=== PATIENT | male | born 1940 | race Hispanic/Latino ===

== ENCOUNTER → 2020-10-12 | Outpatient (CLI) | payer MEDICARE, OTHER ==
[~2020-10-12] MED LIST: ASPIRIN EC81 MG PO; CYANOCOBAL1000 MCG/M IM; DOCUSATE SODIU100 M1 PO; DONEPEZIL HCL5 MG PO; DULCOLAX SUPP10 MG RC; FERROUS SULFAT325 MG PO; LASIX20 MG PO; METOPROLOL TART50 MG PO; MIRTAZAPINE15 MG PO; SIMVASTATIN80 MG PO
== END ==
LOC: SLEEP 19:34
PROVIDERS: ATTEND Internal Medicine
DX: G47.33 Obstructive sleep apnea (adult) (pediatric) (principal)
CPT/HCPCS: 95811

== ENCOUNTER 2021-09-10 13:08 | Inpatient (IN) | payer MEDICARE, OTHER ==
[~2021-09-10] VITALS: Ht 172.7 cm; Wt 75.7 kg
[2021-09-10 13:24] LABS: BASOPHILS % 0.2 % (0.0-1.0); EOSINOPHILS % 0.5 % (0.0-6.0); HEMATOCRIT 25.2 % (38.2-49.6); HEMOGLOBIN 7.6 g/dL (14.0-18.0); LYMPHOCYTES # (AUTO) 0.9 (1.0-3.2); LYMPHOCYTES % 14.4 % (18.0-39.1); MEAN CORPUSCULAR HGB CONC 30.2 g/dL (31-35); MEAN CORPUSCULAR VOLUME 102.9 fL (81-99); MONOCYTES # (AUTO) 0.3 (0.2-0.8); MONOCYTES % 4.2 % (4.4-11.3); NEUTROPHILS % 79.4 % (38.7-80.0); PLATELET COUNT 101 x10e3/uL (140-360); RED BLOOD COUNT 2.45 x10e6/uL (4.3-5.7); RED CELL DISTRIBUTION WIDTH 15.6 % (11.7-14.4)
[2021-09-10 13:30] LABS: INR 1.12; PROTHROMBIN TIME 15.2 seconds (11.9-14.5)
[2021-09-10] MEDS ORDERED: CALCIUM GLUCONATE 10% INJ 4.65 MEQ in SODIUM CHLORIDE 0.9% 50ML 50 ML IV ONE (13:30)
[2021-09-10 13:32] LABS: PARTIAL THROMBOPLASTIN TIME 44.5 seconds (23.8-35.5)
[2021-09-10 13:42] LABS: ALBUMIN 2.5 g/dL (3.5-5.0); ALBUMIN/GLOBULIN RATIO 0.7 (0.8-2.0); ANION GAP 15.7 mmol/L (8-16); CALCIUM 8.1 mg/dL (8.4-10.2); CREATININE, SERUM 6.38 mg/dL (0.72-1.25)
[2021-09-10 13:46] LABS: POTASSIUM 6.7 mmol/L (3.5-5.1)
[2021-09-10 13:47] LABS: CREATINE KINASE MB 6.9 ng/mL (0-5.0)
[2021-09-10] MEDS ORDERED: DEXTROSE 50% SYRINGE 50 ML IV STA ×2 (13:47→20:40)
[2021-09-10] MEDS ORDERED: SODIUM BICARBONATE 8.4% INJ 50 ML SYR IV STA (13:47)
[2021-09-10] MEDS ORDERED: ALBUTEROL SULF 0.083% NEB SOLN 3 ML NEB NEB STA (13:47)
[2021-09-10] MEDS ORDERED: ATROPINE SULFATE 1 MG/ML VIAL ONE (13:53)
[2021-09-10] MEDS ORDERED: SOD POLYSTYRENE SULFONATE SUSP 15 GM/60 ML BTL PO NR (14:00)
[2021-09-10] MEDS ORDERED: INSULIN REGULAR, HUMAN 100 UNIT/1 ML IV ONE (14:00)
[2021-09-10] MEDS ORDERED: SODIUM BICARBONATE 8.4% SYRING 50 ML ONE (14:11)
[2021-09-10] MEDS ORDERED: CETIRIZINE HCL10 MG PO (15:19)
[2021-09-10] MEDS ORDERED: KERENDIA20 MG PO (15:19)
[2021-09-10] MEDS ORDERED: FOLIC ACID 1MG PEG (15:19)
[2021-09-10] MEDS ORDERED: ACIDOPHILUS1 EAC1 PO (15:19)
[2021-09-10] MEDS ORDERED: ISOSORBIDE DINI20 MG PO (15:19)
[2021-09-10] MEDS ORDERED: AMLODIPINE BESY10 MG PO (15:19)
[2021-09-10] MEDS ORDERED: FLOMAX0.4 MG PO (15:19)
[2021-09-10] MEDS ORDERED: LOVAZA1 GM PO (15:19)
[2021-09-10] MEDS ORDERED: LIPITOR20 MG PO (15:19)
[2021-09-10] MEDS ORDERED: SODIUM CHLORIDE 0.9% 1000ML 1,000 ML ONE (15:43)
[2021-09-10] MEDS ORDERED: ONDANSETRON HCL INJ 2MG/ML 2ML 2 MG/ML VIAL IV PRN (15:45)
[2021-09-10] MEDS ORDERED: Vancomycin IV 1 GM in SODIUM CHLORIDE 0.9% 250ML 250 ML IV STA (15:50)
[2021-09-10 16:19] LABS: % IRON SATURATION 62 % (15-50); IRON 136 ug/dL (65-175); TOTAL IRON BINDING CAPACITY 218 ug/dL (261-478); TRANSFERRIN 156 mg/dL (174-364)
[2021-09-10] MEDS: SODIUM BICARBONATE 8.4% 150 ML in STERILE WATER IV SOLN 1,000 ML IV SCH ×3 (17:00→21:09)
[2021-09-10] MEDS: CEFTRIAXONE 1 GM in SODIUM CHLORIDE 0.9% 50ML 50 ML IV SCH (18:00)
[2021-09-10] MEDS ORDERED: HEPARIN SOD (PORCINE) 1000 UNIT/ML SDV ONE (19:15)
[2021-09-10] MEDS ORDERED: LORAZEPAM INJ 2 MG/ML VIAL ONE (19:29)
[2021-09-10] MEDS ORDERED: LORAZEPAM INJ 2 MG/ML VIAL IV ONE ×2 (19:30)
[2021-09-10 19:41] LABS: BASOPHILS % 0.3 % (0.0-1.0); EOSINOPHILS % 0.1 % (0.0-6.0); HEMATOCRIT 26.1 % (38.2-49.6); HEMOGLOBIN 8.4 g/dL (14.0-18.0); LYMPHOCYTES # (AUTO) 1.1 (1.0-3.2); LYMPHOCYTES % 16.2 % (18.0-39.1); MEAN CORPUSCULAR HEMOGLOBIN 30.9 pg (28-32); MEAN CORPUSCULAR HGB CONC 32.2 g/dL (31-35); MONOCYTES # (AUTO) 0.2 (0.2-0.8); MONOCYTES % 2.3 % (4.4-11.3); NEUTROPHILS # (AUTO) 5.5 (2.1-6.9); NEUTROPHILS % 79.6 % (38.7-80.0); PLATELET COUNT 101 x10e3/uL (140-360); RED BLOOD COUNT 2.72 x10e6/uL (4.3-5.7)
[2021-09-10 19:58] LABS: ALBUMIN 2.9 g/dL (3.5-5.0); ALBUMIN/GLOBULIN RATIO 0.8 (0.8-2.0); CALCIUM 8.2 mg/dL (8.4-10.2); CREATININE, SERUM 2.6 mg/dL (0.72-1.25)
[2021-09-10] MEDS ORDERED: FOSPHENYTOIN 50 MG/ML VIAL IV STA (19:58)
[2021-09-10] MEDS ORDERED: FOSPHENYTOIN 50 MG/ML 10ML VIAL ONE (20:19)
[2021-09-10] MEDS ORDERED: SODIUM CHLORIDE 0.9% 100 ML ONE (20:19)
[2021-09-10] MEDS ORDERED: DEXTROSE 50% SYRINGE 50 ML IV ONE (20:43)
[2021-09-10] MEDS ORDERED: DEXTROSE 5% 1,000 ML, SODIUM BICARBONATE 8.4% SYRING 150 ML IV ONE ×2 (20:45)
[2021-09-10] MEDS ORDERED: ATROPINE SULFATE 1 MG/ML VIAL IV PRN (21:15)
[2021-09-10] MEDS ORDERED: Vancomycin IV 1 GM in SODIUM CHLORIDE 0.9% 250ML 250 ML IV ONE ×4 (21:15)
[2021-09-11] VITALS (42 sets, daily range): BP systolic 90–150; BP diastolic 51–109
[2021-09-11] MEDS ORDERED: BENZONATATE 100 MG CAP PO PRN (00:45)
[2021-09-11] MEDS ORDERED: ONDANSETRON HCL INJ 2MG/ML 2ML 2 MG/ML VIAL IV PRN (00:45)
[2021-09-11] MEDS ORDERED: DOCUSATE SODIUM 100 MG CAP PO PRN (00:45)
[2021-09-11] MEDS ORDERED: CEFTRIAXONE 1 GM in SODIUM CHLORIDE 0.9% 50ML 50 ML IV SCH (00:45)
[2021-09-11] MEDS ORDERED: SIMETHICONE 80 MG CHEW PO PRN (00:45)
[2021-09-11] MEDS ORDERED: ALBUTEROL/IPRATROPIUM 3 ML NEB NEB PRN (00:45)
[2021-09-11] MEDS ORDERED: HYDRALAZINE HCL 20 MG/ML VIAL IV PRN (00:45)
[2021-09-11] MEDS ORDERED: Vancomycin IV 1 GM in SODIUM CHLORIDE 0.9% 250ML 250 ML IV ONE (00:45)
[2021-09-11] MEDS ORDERED: DEXTROSE 50% SYRINGE 50 ML IV PRN (00:45)
[2021-09-11] MEDS ORDERED: ACETAMINOPHEN 325 MG TAB PO PRN (00:45)
[2021-09-11] MEDS ORDERED: LIDOCAINE 4% PATCH TP PRN (00:45)
[2021-09-11] MEDS ORDERED: DIPHENHYDRAMINE HCL 25 MG CAP PO PRN (00:45)
[2021-09-11 05:04] LABS: BASOPHILS % 0.2 % (0.0-1.0); EOSINOPHILS % 0.4 % (0.0-6.0); HEMOGLOBIN 7.5 g/dL (14.0-18.0); LYMPHOCYTES # (AUTO) 0.7 (1.0-3.2); LYMPHOCYTES % 7.3 % (18.0-39.1); MEAN CORPUSCULAR HEMOGLOBIN 31.3 pg (28-32); MEAN CORPUSCULAR HGB CONC 34.1 g/dL (31-35); MEAN CORPUSCULAR VOLUME 91.7 fL (81-99); MONOCYTES # (AUTO) 0.2 (0.2-0.8); NEUTROPHILS # (AUTO) 8.5 (2.1-6.9); NEUTROPHILS % 89.5 % (38.7-80.0); PLATELET COUNT 98 x10e3/uL (140-360); RED CELL DISTRIBUTION WIDTH 14.4 % (11.7-14.4)
[2021-09-11 05:28] LABS: ALBUMIN 2.3 g/dL (3.5-5.0); ALBUMIN/GLOBULIN RATIO 0.7 (0.8-2.0); ANION GAP 15.5 mmol/L (8-16); CALCIUM 7.8 mg/dL (8.4-10.2); CREATININE, SERUM 3.44 mg/dL (0.72-1.25); POTASSIUM 3.5 mmol/L (3.5-5.1)
[2021-09-11] MEDS: CEFTRIAXONE 1 GM in SODIUM CHLORIDE 0.9% 50ML 50 ML IV SCH ×2 (05:52→17:07)
[2021-09-11 06:17] LABS: CHOL/HDL RATIO 2.4 (3.9-4.7); MAGNESIUM 1.6 MG/DL (1.3-2.1); PHOSPHORUS 3.8 MG/DL (2.3-4.7)
[2021-09-11 06:26] LABS: CREATINE KINASE MB 6.2 ng/mL (0-5.0)
[2021-09-11 06:39] LABS: THYROID STIMULATING HORMONE 6.887 uIU/mL (0.350-4.940)
[2021-09-11] MEDS ORDERED: PANTOPRAZOLE SOD 40 MG TABEC PO SCH (07:30)
[2021-09-11] MEDS: OMEGA 3 POLYUNSAT FATTY ACIDS 1000 MG SOFTGEL PO SCH ×2 (07:41→13:23)
[2021-09-11] MEDS ORDERED: ASPIRIN 81 MG ENTERIC COATED PO SCH (09:00)
[2021-09-11] MEDS ORDERED: TAMSULOSIN HCL 0.4 MG CAP PO SCH (09:00)
[2021-09-11] MEDS ORDERED: METHYLPREDNISOLONE SOD SUCC 125 MG/2ML VIAL IV ONE (11:35)
[2021-09-11] MEDS ORDERED: SODIUM BICARBONATE 8.4% 150 ML in DEXTROSE 5% 1,000 ML IV SCH (12:00)
[2021-09-11 12:55] LABS: CLARITY,URINE CLEAR (CLEAR); COLOR,URINE YELLOW (YELLOW); KETONES,URINE NEGATIVE (NEGATIVE); LEUKOCYTE ESTERASE ,URINE LARGE (NEGATIVE); NITRITE,URINE NEGATIVE (NEGATIVE); PROTEIN,URINE DIPSTICK 2+ (NEGATIVE); URINE UROBILINOGEN 0.2 mg/dL (0.2 - 1)
[2021-09-11] MEDS ORDERED: DEXTROSE 50% SYRINGE 50 ML IV ONE (12:55)
[2021-09-11 13:09] LABS: BACTERIA,URINE MANY /HPF; WBC,URINE (MAN) >50 /HPF (0-5)
[2021-09-11 14:15] LABS: CREATINE KINASE MB 4.2 ng/mL (0-5.0)
[2021-09-11] MEDS ORDERED: DONEPEZIL HCL 5 MG TAB PO SCH (21:00)
[2021-09-11] MEDS ORDERED: SCOPOLAMINE 1.5 MG PATCH TOP ONE (22:30)
[2021-09-11] MEDS ORDERED: FOLIC ACID MDV 1 MG in SODIUM CHLORIDE 0.9% 50ML 50 ML IV SCH (22:30)
[2021-09-11] MEDS ORDERED: THIAMINE HCL INJ 100 MG/ML 2ML VIAL IV SCH (22:30)
[2021-09-12 00:58] VITALS: BP 141/85
[2021-09-12 01:00] VITALS: BP 155/57
== END 2021-09-12 01:43 | disposition short-term general hospital (02) | DRG 871 ==
LOC: ER 13:14 → ERHOLD 15:53 → ICU 23:57
PROVIDERS: ADMIT Internal Medicine; ATTEND Internal Medicine
PROC: 5A1D70Z Performance of Urinary Filtration, Intermittent, Less than 6 Hours Per Day (ICD-10-PCS; principal; 2021-09-10)
PROC: 02HV33Z Insertion of Infusion Device into Superior Vena Cava, Percutaneous Approach (ICD-10-PCS; 2021-09-10)
DX: A41.9 Sepsis, unspecified organism (principal); G93.41 Metabolic encephalopathy; I44.2 Atrioventricular block, complete; N39.0 Urinary tract infection, site not specified; N17.9 Acute kidney failure, unspecified; N18.5 Chronic kidney disease, stage 5; I13.2 Hypertensive heart and chronic kidney disease with heart failure and with stage 5 chronic kidney disease, or end stage renal disease; I50.32 Chronic diastolic (congestive) heart failure; E87.2 Acidosis; I25.10 Atherosclerotic heart disease of native coronary artery without angina pectoris; N40.0 Benign prostatic hyperplasia without lower urinary tract symptoms; E87.5 Hyperkalemia; N35.919 Unspecified urethral stricture, male, unspecified site; R00.1 Bradycardia, unspecified; D50.0 Iron deficiency anemia secondary to blood loss (chronic); Z95.1 Presence of aortocoronary bypass graft; Z20.822 Contact with and (suspected) exposure to COVID-19; E11.22 Type 2 diabetes mellitus with diabetic chronic kidney disease; D64.9 Anemia, unspecified; R56.9 Unspecified convulsions; N50.0 Atrophy of testis; Z86.73 Personal history of transient ischemic attack (TIA), and cerebral infarction without residual deficits
CPT/HCPCS: 36415; 70450; 71045; 74018; 76770; 80053; 80061; 81001; 82140; 82550; 82553; 82607; 82728; 82948; 83036; 83540; 83735; 83880; 84100; 84443; 84466; 84484; 85025; 85610; 85730; 86705; 86706; 87040; 87071; 87086; 87186; 87205; 87340; 93005; 93306; 94799; 97139; 99284; J0461; J0610; J0696; J1644; J1817; J2060; J2930; J3370; J3411; J7030; J7050; J7070; J7799; Q2009; U0002